=== PATIENT | male | born 1985 | race Caucasian/White ===

== ENCOUNTER 2018-05-12 15:02 | Emergency (ER) | payer OTHER, SELFPAY | END 2018-05-12 17:23 | disposition home or self-care (01) | LOC: ERS 15:02 | DX: S39.011A Strain of muscle, fascia and tendon of abdomen, initial encounter (principal); Z71.6 Tobacco abuse counseling; F17.210 Nicotine dependence, cigarettes, uncomplicated | CPT/HCPCS: 99406 ==